=== PATIENT | female | born 1990 | race American Indian/Alaskan Native ===

== ENCOUNTER 2017-04-25 08:39 | Emergency (ER) | payer BC, MEDICAID ==
[2017-04-25 08:42] VITALS: RESP 19; O2SAT 100
[2017-04-25 08:46] VITALS: BMI 19.5
[2017-04-25 08:49] VITALS: BP 108/64; PULSE 84; TEMP 98.5
--- NOTE | 2017-04-25 09:24 | ED PDOC ---
HPI: Back Time Seen by Provider: 04/25/17 09:10 Chief Complaint (Nursing): Back Pain Chief Complaint (Provider): neck pain History Per: Patient History/Exam Limitations: no limitations Onset/Duration Of Symptoms: Days (x 1) Additional Complaint(s): Katherin Sandy is a 26 year old female, with a previous medical history of arthritis, who presents to the ED with complaints of pain to the upper back and left side of her neck radiating to her shoulder ongoing for one day. Patient denies any fevers. She reports experiencing this pain before which usually resolves with Tylenol. PMD: none provided Past Medical History Reviewed: Historical Data, Nursing Documentation, Vital Signs Vital Signs: Last Vital Signs Temp 98.5 F 04/25/17 08:41 Pulse 84 04/25/17 08:41 Resp 19 04/25/17 08:41 BP 108/64 04/25/17 08:41 Pulse Ox 100 04/25/17 08:41 - Medical History PMH: Arthritis (back) - Family History Family History: States: Unknown Family Hx - Home Medications Home Medications: Ambulatory Orders Medication Instructions Recorded Naproxen 375 mg PO Q8 PRN #21 tab 01/02/15 Ciprofloxacin HCl [Cipro] 500 mg PO BID 5 Days 03/01/15 Cyclobenzaprine [Cyclobenzaprine 10 mg PO TID PRN #15 tab 09/07/15 HCl] Naproxen [Naprosyn Tab] 500 mg PO BID PRN #20 tab 09/07/15 Cyclobenzaprine [Cyclobenzaprine 10 mg PO TID PRN #15 tab 04/25/17 HCl] Naproxen [Naprosyn] 500 mg PO BID PRN #15 tablet 04/25/17 - Allergies Allergies/Adverse Reactions: Allergies Allergy/AdvReac Type Severity Reaction Status Date / Time Penicillins Allergy RASH Verified 04/25/17 08:49 crawfish Allergy SHORTNESS Uncoded 01/02/15 18:47 OF BREATH Review of Systems ROS Statement: Except As Marked, All Systems Reviewed And Found Negative Constitutional: Negative for: Fever Musculoskeletal: Positive for: Neck Pain, Shoulder Pain, Back Pain Physical Exam - Reviewed Nursing Documentation Reviewed: Yes Vital Signs Reviewed: Yes - Physical Exam Appears: Positive for: Well, Non-toxic, No Acute Distress Head Exam: Positive for: ATRAUMATIC, NORMAL INSPECTION, NORMOCEPHALIC Skin: Positive for: Normal Color, Warm, Dry Neck: Positive for: Supple, Decreased ROM (when turning to the left ) Cardiovascular/Chest: Positive for: Regular Rate, Rhythm Respiratory: Positive for: CNT, Normal Breath Sounds Extremity: Negative for: Normal ROM (decreased ROM to the left shoulder secondary to pain ), Tenderness Neurologic/Psych: Positive for: Alert, Oriented - ECG O2 Sat by Pulse Oximetry: 100 (RA) Pulse Ox Interpretation: Normal - CT Scan/US CT C-spine Other Rad Studies (CT/US): Radiology Report Reviewed (Small osteophyte disc bulging complex at C5-C6 associated with mild spinal stenosis. Mild cervical spine spondylosis. Right thyroid lobe nodule.) Medical Decision Making Medical Decision Making: Initial Impression: Muscle spasm, musculoskeletal pain Initial Plan: * urine * Toradol 30 mg IM * Valium 5 mg PO * reevaluation Copy of CT report given to patient, notified of incidental findings. Scribe Attestation: Documented by Kasia Oh, acting as a scribe for Kasia Cruz MD. Provider Scribe Attestation: All medical record entries made by the Scribe were at my direction and personally dictated by me. I have reviewed the chart and agree that the record accurately reflects my personal performance of the history, physical exam, medical decision making, and the department course for this patient. I have also personally directed, reviewed, and agree with the discharge instructions and disposition. Disposition - Clinical Impression Clinical Impression: Bulging disc - Patient ED Disposition Is Patient to be Admitted: No - Disposition Disposition: Routine/Home Disposition Time: 12:30 Condition: STABLE Additional Instructions: FOLLOW-UP WITH YOUR PMD WITHIN 2 DAYS FOR REEVALUATION. BRING COPY OF YOUR CT REPORT. Prescriptions: Cyclobenzaprine [Cyclobenzaprine HCl] 10 mg PO TID PRN #15 tab PRN Reason: Pain Naproxen [Naprosyn] 500 mg PO BID PRN #15 tablet PRN Reason: Pain, Moderate (4-7) Instructions: Muscle Spasm (ED)
--- NOTE | 2017-04-25 12:42 | CT ---
PROCEDURE: CT Cervical Spine without contrast HISTORY: Neck pain COMPARISON: Comparison is made to the previous x-ray of the cervical spine dated 09/07/2015 TECHNIQUE: Axial computed tomography images were obtained of the cervical spine without the use of intravenous contrast. Coronal and sagittal reformatted images were created and reviewed. Radiation dose: Total exam DLP = 278.63 mGy-cm. This CT exam was performed using one or more of the following dose reduction techniques: Automated exposure control, adjustment of the mA and/or kV according to patient size, and/or use of iterative reconstruction technique. FINDINGS: VERTEBRAE: No fracture. Normal alignment. No destructive bony lesion. DISCS/SPINAL CANAL/NEURAL FORAMINA: Small osteophyte disc bulging complex seen at C5-C6 associated with mild spinal stenosis. No evidence of significant neural foraminal narrowing. Discs heights are grossly preserved. PARASPINAL SOFT TISSUES: Unremarkable. OTHER FINDINGS: Low-attenuation nodule seen at the right thyroid lobe measures 1.2 centimeter. IMPRESSION: Small osteophyte disc bulging complex at C5-C6 associated with mild spinal stenosis. Mild cervical spine spondylosis. Right thyroid lobe nodule.
== END 2017-04-25 13:11 | disposition home or self-care (01) ==
LOC: H.ER 08:39
DX: M54.2 Cervicalgia (principal); M54.9 Dorsalgia, unspecified; M62.830 Muscle spasm of back